=== PATIENT | female | born 1990 | race Caucasian/White ===

== ENCOUNTER 2016-11-12 01:07 | Emergency (ER) | payer SELFPAY ==
[~2016-11-12] VITALS: Ht 160 cm; Wt 59.0 kg
[2016-11-12 01:17] VITALS: Ht 160 cm; Wt 59.0 kg
[2016-11-12] MEDS ORDERED: CLINDAMYCIN 300 MG INJ IM ONE (04:00)
[2016-11-12] MEDS ORDERED: CLIN-73 PO (04:00)
[2016-11-12] MEDS ORDERED: IBUP-1542 PO (04:00)
--- NOTE | 2016-11-12 04:31 | ERD ---
ER Documentation Chief Complaint Date/Time DATE: 11/12/16 TIME: 04:26 Chief Complaint pt reports stitches placed a week ago ripped HPI 26-year-old female presents here in emergency department for complaints her stitches that rectal pain, redness and swelling surrounding the laceration wound that was repaired one week ago. Patient describes the pain as sharp pain, succession scale, is worse upon touching the area. Patient denies any fever or chills. Patient denies any numbness or tingling. ROS All systems reviewed and are negative except as per history of present illness. Medications Home Meds Active Scripts Ibuprofen* (Motrin*) 600 Mg Tab, 600 MG PO Q6H Y for PAIN AND OR ELEVATED TEMP, #30 TAB Prov:JONELLE VELÁZQUEZ NP 11/12/16 Clindamycin Hcl* (Clindamycin Hcl*) 300 Mg Capsule, 300 MG PO TID for 10 Days, CAP Prov:JONELLE VELÁZQUEZ NP 11/12/16 Allergies Allergies: Coded Allergies: Penicillins (Verified Allergy, Severe, HIVES, 10/26/15) PMhx/Soc History of Surgery: Yes (D&C) Anesthesia Reaction: No Hx Neurological Disorder: No Hx Respiratory Disorders: No Hx Cardiac Disorders: No Hx Psychiatric Problems: No Hx Miscellaneous Medical Probl: No Hx Alcohol Use: No Hx Substance Use: Yes (1 "bowl of weed" a day) Hx Tobacco Use: Yes (6 cigs/day) FmHx Family History: diabetes Physical Exam Vitals Vital Signs Date Time Temp Pulse Resp B/P Pulse Ox O2 Delivery O2 Flow Rate FiO2 11/12/16 01:17 97.0 110 16 111/63 100 Physical Exam GENERAL: The patient is well developed and appropriate for usual state of health, in no apparent distress. CHEST: Clear to auscultation bilaterally. There are no rales, wheezes or rhonchi. HEART: Regular rate and rhythm. No murmurs, clicks, rubs or gallops. No S3 or S4. ABDOMEN: Soft, nontender and nondistended. Good bowel sounds. No rebound or guarding. No gross peritonitis. No gross organomegaly or masses. No Anderson sign or McBurney point tenderness. BACK: No midline or flank tenderness. EXTREMITIES: Equal pulses bilaterally. There is no peripheral clubbing, cyanosis or edema. No focal swelling or erythema. Full range of motion. Grossly neurovascularly intact. NEURO: Alert and oriented. Cranial nerves 2-12 intact. Motor strength in all 4 extremities with 5/5 strength. Sensation grossly intact. Normal speech and gait. SKIN: 3 cm laceration wound noted in the left buttock, sutures are in place but some of them are open, there is redness and swelling surrounding the area, tenderness on palpation.There is no apparent rash or petechia. The skin is warm and dry. HEMATOLOGIC AND LYMPHATIC: There is no evidence of excessive bruising or lymphedema. No gross cervical, axillary, or inguinal lymphadenopathy. Results 24 hrs Current Medications Medications (Trade) Dose Ordered Sig/Radha Route PRN Reason Start Time Stop Time Status Last Admin Dose Admin Clindamycin Phosphate (Cleocin) 600 mg ONCE ONCE IM 11/12/16 04:00 11/12/16 04:01 DC IM clindamycin to be given here in emergency department wound cleaning, patient eloped prior to getting medication and prescription and discharge instructions. Patient was tried to be contacted, unable to contact anymore. Patient eloped. Patient stable prior to eloping. Procedures/MDM Medical decision making: Patient has an infected wound on the right foot, patient and old and left prior to cleaning the wound and prior to getting antibiotics. After multiple attempts of contacting patient, patient was unable to be contacted. Pt was stable prior to eloping Departure Diagnosis: Primary Impression: Infected wound Condition: Stable Patient Instructions: Wound Check, Lac F/U (Infected) Additional Instructions: wound check in 2 days JONELLE VELÁZQUEZ NP Nov 12, 2016 04:31
== END 2016-11-12 04:05 | disposition left against medical advice (07) ==
LOC: FTE 01:07
DX: L53.9 Erythematous condition, unspecified (principal); F17.210 Nicotine dependence, cigarettes, uncomplicated; Z48.01 Encounter for change or removal of surgical wound dressing
CPT/HCPCS: 99283